=== PATIENT | male | born 1985 | race Caucasian/White ===

== ENCOUNTER 2017-06-03 19:16 | Emergency (ER) | payer MEDICAID ==
--- NOTE | 2017-06-03 19:36 | EDM.PDOC ---
ED HPI GENERAL MEDICAL PROBLEM - General Chief Complaint: Upper Extremity Injury/Pain Stated Complaint: LEFT WRIST PAIN/BUMP Time Seen by Provider: 06/03/17 19:25 Source of Information: Reports: Patient. Denies: Old Records (No [facility] records available) History Limitations: Reports: No Limitations - History of Present Illness INITIAL COMMENTS - FREE TEXT/NARRATIVE: The patient drove himself to the emergency room via private automobile for evaluation of persistent 6/10 sharp left wrist pain with some swelling with patient falling in his home on his extended wrist about 2 weeks ago. He has been able to perform his normal work duties. About one week ago the patient noted a lump on the flexor surface of his wrist and did try to drain this on his own one day thereafter. No history of paresthesias, neurological deficits, head injury, neck/back pain, or other complaints or injuries. He has not injured this wrist in the past. The patient is right-handed. The patient denies any chest pain/pressure, heart flutter, dizziness, orthostasis, orthopnea, diaphoresis, paresthesias, recent decreased exercise tolerance, or any other anginal-type symptoms. No recent history of abdominal pain, heartburn, nausea, diarrhea, melena, gross hematochezia, or any food intolerance, including fatty foods, etc.. The patient also denies any recent fever, cough, wheezing, dyspnea , etc.. His left wrist pain does radiate into his forearm when lifting objects. Onset: Unknown/Unsure Onset Date: 05/21/17 Duration: Constant, Getting Worse Location: Reports: Upper Extremity, Left, Radiates to (As above). Denies: Head , Face, Neck, Chest, Abdomen, Back, Upper Extremity, Right Quality: Reports: Sharp Severity: Moderate Improves with: Reports: Rest Worsens with: Reports: Movement Context: Reports: Trauma (As above) Treatments CASE MANAGEMENT RN: Reports: NSAIDS (400 mg at noon today) Left Wrist Pain Score (Numeric/FACES): 6 - Related Data Allergies Allergy/AdvReac Type Severity Reaction Status Date / Time acetaminophen [From Vicodin] Allergy Hives Verified 06/03/17 19:19 epinephrine Allergy Tachycardia Verified 06/03/17 19:19 hydrocodone [From Vicodin] Allergy Hives Verified 06/03/17 19:19 Penicillins Allergy Cannot Verified 06/03/17 19:19 Remember Home Meds: Home Meds diphenhydrAMINE HCl [Benadryl] 50 mg PO ASDIRECTED PRN 06/03/17 [History] Past Medical History HEENT History: Reports: Allergic Rhinitis, Impaired Vision, Other (See Below). Denies: Hard of Hearing, Retinal Detachment Other HEENT History: Patient wears glasses Cardiovascular History: Reports: None, Other (See Below). Denies: Afib, Aneurysm, Arrhythmia, Blood Clots/VTE/DVT, CAD, Heart Murmur, High Cholesterol, Hypertension, Syncope Other Cardiovascular History: He does not know his cholesterol status Respiratory History: Denies: Asthma, COPD, Intubation, Previous, PE, Pneumothorax Gastrointestinal History: Reports: Colon Polyp, Gastritis, GERD, PUD, Other ( See Below). Denies: Celiac Disease, Cholelithiasis, Chronic Constipation, Chronic Diarrhea, Fecal Incontinence, GI Bleed, Hepatitis, Inflammatory Bowel Disease, Irritable Bowel Syndrome, Jaundice, Pancreatitis Other Gastrointestinal History: Gastric ulcer from age 14. Excision of multiple colonic polyps of unknown type at age 23 Genitourinary History: Reports: None. Denies: Acute Renal Failure, Chronic Renal Insuffiency, Renal Calculus, STD, Urinary Incontinence, UTI, Recurrent Musculoskeletal History: Reports: None. Denies: Amputation, Arthritis, Back Pain, Chronic, Fracture, Gout, Neck Pain, Chronic, RA, SLE Neurological History: Reports: None. Denies: Cerebral Aneurysms, Concussion, CVA, Headaches, Chronic, Head Trauma, Migraines, MS, Parkinson's, Seizure, TIA Psychiatric History: Reports: ADD, ADHD. Denies: Abuse, Victim of, Addiction, Anxiety, Depression, Psych Hospitalization(s), PTSD, Suicide Attempt, Suicidal Ideation Endocrine/Metabolic History: Reports: Obesity/BMI 30+. Denies: Diabetes, Type I , Diabetes, Type II, Diabetes Mellitus, Type 3c, Hypothyroidism, IDDM Hematologic History: Reports: None. Denies: Anemia, Blood Transfusion(s), Iron Deficiency Immunologic History: Reports: None. Denies: AIDS, HIV, SLE Oncologic (Cancer) History: Reports: None. Denies: Basal Cell Carcinoma, Hodgkin's Lymphoma, Leukemia, Lymphoma, Malignant Melanoma, Non-Hodgkin's Lymphoma Dermatologic History: Reports: None. Denies: Eczema, Psoriasis - Infectious Disease History Infectious Disease History: Reports: None. Denies: C-Difficile, Chicken Pox, Measles, Meningitis, Mononucleosis, MRSA, Mumps, Rheumatic Fever, Rubella, Scarlet Fever, VRE - Past Surgical History Head Surgeries/Procedures: Reports: None HEENT Surgical History: Reports: Adenoidectomy, Tonsillectomy, Other (See Below) . Denies: Eye Surgery, Laser Surgery, LASIK, Myringotomy w Tube(s), Naso-Sinus Surgery, Oral Surgery Other HEENT Surgeries/Procedures: Tonsillectomy and adenoidectomy at age 4 Cardiovascular Surgical History: Reports: None. Denies: Varicose Respiratory Surgical History: Reports: None. Denies: Thoracentesis GI Surgical History: Reports: Colonoscopy, Hernia, Inguinal, Polypectomy, Other (See Below). Denies: Appendectomy, Cholecystectomy, EGD, Hernia, Abdominal, Hernia Repair/Other Other GI Surgeries/Procedures: Left inguinal hernia repair 2 at age 23. Colonoscopy at age 23 with excision of multiple polyps at that time as above. Male Surgical History: Reports: Circumcision, Other (See Below). Denies: Vasectomy Other Male Surgeries/Procedures: Circumcision as an Endocrine Surgical History: Reports: None. Denies: Thyroid Biopsy Neurological Surgical History: Reports: None. Denies: C-Spine, Discectomy, Intracranial, Laminectomy, Lumbar Spine, Sacral Spine, Spinal Fusion, Vertebroplasty Musculoskeletal Surgical History: Denies: Arthroscopic Procedure, Carpal Tunnel , Ganglion Cyst, Joint Replacement, ORIF, Shoulder Surgery Oncologic Surgical History: Reports: None Dermatological Surgical History: Reports: None Social & Family History - Tobacco Use Smoking Status *Q: Never Smoker Tobacco Use Within Last Twelve Months: No Used Tobacco, but Quit: No Smoking Cessation Information Provided To Patient: No Second Hand Smoke Exposure: No Second Hand Smoke Education Provided: No - Caffeine Use Caffeine Use: Reports: Soda (24 sodas per day), Tea (1 glass 2 times per month) . 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 ED EXAM, GENERAL - Physical Exam Exam: See Below Exam Limited By: No Limitations General Appearance: Alert, WD/WN, No Apparent Distress Head: Atraumatic, Normocephalic Neck: Normal Inspection, Supple, Non-Tender, Full Range of Motion. No: Lymphadenopathy (L), Lymphadenopathy (R), Thyromegaly Respiratory/Chest: No Respiratory Distress, Lungs Clear, Normal Breath Sounds, No Accessory Muscle Use, Chest Non-Tender. No: Pleural Rub, Retractions Cardiovascular: Normal Peripheral Pulses, Regular Rate, Rhythm, No Edema, No Gallop, No JVD, No Murmur, No Rub. No: Gallop/S3, Gallop/S4, Friction Rub Peripheral Pulses: 2+: Radial (L), Radial (R) GI/Abdominal: Normal Bowel Sounds, Soft, Non-Tender, No Organomegaly, No Distention, No Abnormal Bruit, No Mass, Other (Obese). No: Guarding (Male) Exam: Deferred Rectal (Males) Exam: Deferred Back Exam: Normal Inspection, Full Range of Motion. No: CVA Tenderness (L), CVA Tenderness (R), Muscle Spasm Extremities: Normal Range of Motion, No Pedal Edema, Normal Capillary Refill, Arm Pain (Mild Palpation pain over the 11.5 cm ganglion over the flexor distal left radial surface with no local signs of infection and multiple scratches on his forearms bilaterally. Left wrist shows excellent range of motion with no crepitation, deformity, or snuffbox tenderness). No: Lynn's Sign Neurological: Alert, Oriented, CN II-XII Intact, Normal Cognition, Normal Gait, Normal Reflexes, No Motor/Sensory Deficits Psychiatric: Normal Affect, Normal Mood Skin Exam: Warm, Dry, Normal Color, No Rash, Wound/Incision (Scratches as above) . No: Diaphoretic, Erythema, Increased Warmth, Lymphangitis Lymphatic: No Adenopathy Course - Vital Signs Last Recorded V/S: Last Vital Signs Temp 37.1 C 06/03/17 19:27 Pulse 68 06/03/17 19:27 Resp 18 06/03/17 19:27 BP 146/86 H 06/03/17 19:27 Pulse Ox 96 06/03/17 19:27 - Orders/Labs/Meds Orders: Active Orders 24 hr Category Date Time Status Wrist Comp Min 3V Lt [CR] Stat Exams 06/03/17 19:36 Taken Durable Medical Equipment for Discharge [DME for Oth 06/03/17 20:01 Ordered Discharge] [COMM] Routine Obtain Past Medical Record [OM.PC] Routine Oth 06/03/17 19:36 Active Labs: None Meds: None - Radiology Interpretation Free Text/Narrative:: X-rays of the left wrist, complete, shows no evidence of fracture, dislocation, etc. Mild osteoarthritic changes noted. Mild metallic foreign body in the soft tissue of the distal aspect of the first metacarpal Departure - Departure Time of Disposition: 20:25 Disposition: Home, Self-Care 01 Condition: Good Clinical Impression: Left wrist pain, Ganglion cyst, Obesity (BMI 30.0-34.9), Peptic reflux disease Colonic polyp Qualifiers: Colon polyp type: unspecified Colon location: unspecified part of colon Qualified Code(s): K63.5 - Polyp of colon Allergic rhinitis Qualifiers: Allergic rhinitis trigger: unspecified Allergic rhinitis seasonality: unspecified seasonality Qualified Code(s): J30.9 - Allergic rhinitis, unspecified - Discharge Information Instructions: Ganglion Cyst Referrals: PCP,None [Primary Care Provider] - Forms: ED Department Discharge Additional Instructions: 1. Follow up with your regular provider in 10-14 days as needed, if symptoms persist. 2. Wear cock up wrist splint at all times with activity as directed for at least 2 weeks then as needed thereafter 3. Update regular routine healthcare KADEN with recommended preoperative history and physical for colonoscopy KADEN secondary to your previous history of colonic polyps 4. Activity as directed/tolerated 5. Consider ganglion cyst excision depending on your clinical course 6. Tylenol 650 mg by mouth every 4 hours and/or OTC ibuprofen 2-3 tabs by mouth every 6 hours with food as directed./needed. 7. BenGay or equivalent, heating pad, and/or ice packs as directed. 8. Update your immunizations KADEN including DTaP, etc. with yearly influenza boosters recommended - Problem List & Annotations (1) Allergic rhinitis SNOMED Code(s): 93309764 Code(s): J30.9 - ALLERGIC RHINITIS, UNSPECIFIED Status: Chronic Priority : Medium Annotation/Comment:: Stable by patient history Qualifiers: Allergic rhinitis trigger: unspecified Allergic rhinitis seasonality: unspecified seasonality Qualified Code(s): J30.9 - Allergic rhinitis, unspecified (2) Ganglion cyst SNOMED Code(s): 883672877, 933946498 Code(s): M67.40 - GANGLION, UNSPECIFIED SITE Status: Acute Priority: High Onset Date: ~05/21/17 Annotation/Comment:: Small ganglion cyst only somewhat symptomatic as above. Various therapeutic options were discussed. Patient will consider possible surgery in the future and discuss this further with his new primary care provider. (3) Colonic polyp SNOMED Code(s): 16181290 Code(s): K63.5 - POLYP OF COLON Status: Chronic Priority: Medium Annotation/Comment:: History of multiple colonic polyps in the past as above. Patient counseled extensively concerning the importance of repeat colonoscopy KADEN. Update of his routine health care at that time, including recommended lipid panel, etc. Qualifiers: Colon polyp type: unspecified Colon location: unspecified part of colon Qualified Code(s): K63.5 - Polyp of colon (4) Left wrist pain SNOMED Code(s): 70868063 Code(s): M25.532 - PAIN IN LEFT WRIST Status: Acute Priority: High Onset Date: ~05/21/17 Annotation/Comment:: Probable mild left wrist sprain. Various therapeutic options were discussed. Patient is agreement with initiation of cock up wrist therapy. He is able to perform his normal work duties with no work excuse required. Cock up wrist splint applied by the nurse. Symptomatic treatment as per discharge instructions. (5) Obesity (BMI 30.0-34.9) SNOMED Code(s): 297445349 Code(s): E66.9 - OBESITY, UNSPECIFIED Status: Chronic Priority: Medium Annotation/Comment:: Weight loss in moderation advisable. Lipid panel advisable as above. (6) Peptic reflux disease SNOMED Code(s): 640063768 Code(s): K21.9 - GASTRO-ESOPHAGEAL REFLUX DISEASE WITHOUT ESOPHAGITIS Status: Chronic Priority: Medium Annotation/Comment:: Stable by patient history with no current medical therapy required. - Problem List Review Problem List Initiated/Reviewed/Updated: Yes - My Orders Last 24 Hours: My Active Orders 06/03/17 19:36 Wrist Comp Min 3V Lt [CR] Stat Obtain Past Medical Record [OM.PC] Routine 06/03/17 20:01 Durable Medical Equipment for Discharge [DME for Discharge] [COMM] Routine - Assessment/Plan Last 24 Hours: My Active Orders 06/03/17 19:36 Wrist Comp Min 3V Lt [CR] Stat Obtain Past Medical Record [OM.PC] Routine 06/03/17 20:01 Durable Medical Equipment for Discharge [DME for Discharge] [COMM] Routine Assessment:: As above Plan: As above. Extensive precautions were given to the patient, who is in agreement with the treatment plan. See Patient Instructions for further treatment and plan.
== END 2017-06-03 20:25 | disposition home or self-care (01) ==
LOC: LL.ED 19:16
DX: M67.432 Ganglion, left wrist (principal); S50.812A Abrasion of left forearm, initial encounter; S50.811A Abrasion of right forearm, initial encounter; K63.5 Polyp of colon; K21.9 Gastro-esophageal reflux disease without esophagitis; J30.9 Allergic rhinitis, unspecified; E66.9 Obesity, unspecified; Z68.34 Body mass index [BMI] 34.0-34.9, adult; Z88.6 Allergy status to analgesic agent; Z88.5 Allergy status to narcotic agent; Z88.0 Allergy status to penicillin; W19.XXXA Unspecified fall, initial encounter; Y92.009 Unspecified place in unspecified non-institutional (private) residence as the place of occurrence of the external cause
CPT/HCPCS: 73110-LT; 99283

== ENCOUNTER 2017-09-01 21:57 | Emergency (ER) | payer MEDICAID ==
[2017-09-01 22:46] LABS: CHLORIDE,CL 101 mmol/L (98-107); SODIUM,NA 139 mmol/L (136-145)
--- NOTE | 2017-09-01 23:21 | EDM.PDOC ---
ED HPI GENERAL MEDICAL PROBLEM - General Chief Complaint: Neuro Symptoms/Deficits Stated Complaint: Right sided weakness, tingling since 4pm today Time Seen by Provider: 09/01/17 22:21 Source of Information: Reports: Patient, Other ([place]) History Limitations: Reports: No Limitations - History of Present Illness INITIAL COMMENTS - FREE TEXT/NARRATIVE: Patient presents to ER complaining of right sided weakness/tingling that started around 4 to 4:30 this afternoon. Initially started to feel unwell around noon. At that time he felt chilled and sleepy. Wrapped self in blanket and tried to sleep. Also took 3 Tylenol because of developing headache. He later noted the right sided discomfort, and took another 3 Tylenol. Fibethanie wanted him to come in tonight due to family history of stroke and aneurysms. Father reportedly had first stroke in his 30s. Uncle, great uncle, and grandfather had aneurysms. - Related Data Allergies Allergy/AdvReac Type Severity Reaction Status Date / Time acetaminophen [From Vicodin] Allergy Hives Verified 09/01/17 22:03 epinephrine Allergy Tachycardia Verified 09/01/17 22:03 hydrocodone [From Vicodin] Allergy Hives Verified 09/01/17 22:03 Penicillins Allergy Cannot Verified 09/01/17 22:03 Remember Home Meds: Home Meds Acetaminophen [Tylenol] 1,950 mg PO Q4HR 09/01/17 [History] Past Medical History HEENT History: Reports: Allergic Rhinitis, Impaired Vision, Other (See Below) Other HEENT History: Patient wears glasses Cardiovascular History: Reports: None, Other (See Below) Other Cardiovascular History: He does not know his cholesterol status Gastrointestinal History: Reports: Colon Polyp, Gastritis, GERD, PUD, Other ( See Below) Other Gastrointestinal History: Gastric ulcer from age 14. Excision of multiple colonic polyps of unknown type at age 23 Genitourinary History: Reports: None Musculoskeletal History: Reports: None Neurological History: Reports: None Psychiatric History: Reports: ADD, ADHD Endocrine/Metabolic History: Reports: Obesity/BMI 30+ Hematologic History: Reports: None Immunologic History: Reports: None Oncologic (Cancer) History: Reports: None Dermatologic History: Reports: None - Infectious Disease History Infectious Disease History: Reports: None - Past Surgical History Head Surgeries/Procedures: Reports: None HEENT Surgical History: Reports: Adenoidectomy, Tonsillectomy, Other (See Below) Other HEENT Surgeries/Procedures: Tonsillectomy and adenoidectomy at age 4 Cardiovascular Surgical History: Reports: None Respiratory Surgical History: Reports: None GI Surgical History: Reports: Colonoscopy, Hernia, Inguinal, Polypectomy, Other (See Below) Other GI Surgeries/Procedures: Left inguinal hernia repair 2 at age 23. Colonoscopy at age 23 with excision of multiple polyps at that time as above. Male Surgical History: Reports: Circumcision, Other (See Below) Other Male Surgeries/Procedures: Circumcision as an Endocrine Surgical History: Reports: None Neurological Surgical History: Reports: None Oncologic Surgical History: Reports: None Dermatological Surgical History: Reports: None Social & Family History - Family History Neurological: Reports: Cerebral Aneurysms, CVA - Caffeine Use Caffeine Use: Reports: Soda, Tea - Living Situation & Occupation Living situation: Reports: Single (4 children from previous significant other relationship), with Significant Other (With 3 children from this relationship) Occupation: Employed ([employer]) ED ROS GENERAL - Review of Systems Review Of Systems: See Below Constitutional: Reports: Chills, Malaise, Fatigue, Decreased Appetite, Other ( felt "hot" at times). Denies: Fever, Weakness, Night Sweats, Diaphoresis HEENT: Reports: No Symptoms Respiratory: Reports: No Symptoms Cardiovascular: Reports: No Symptoms GI/Abdominal: Reports: Abdominal Pain (mild abdominal discomfort/general), Decreased Appetite. Denies: Black Stool, Bloody Stool, Constipation, Diarrhea, Hematemesis, Hematochezia, Nausea, Vomiting : Reports: No Symptoms Musculoskeletal: Reports: No Symptoms Skin: Reports: No Symptoms Neurological: Reports: Other (right arm/leg tingling, feels weak) Psychiatric: Reports: No Symptoms Hematologic/Lymphatic: Reports: No Symptoms Immunologic: Reports: No Symptoms ED EXAM, NEURO - Physical Exam Exam: See Below Exam Limited By: No Limitations General Appearance: Alert, WD/WN, No Apparent Distress Eye Exam: Bilateral Eye: EOMI, PERRL Ears: Normal External Exam, Normal Canal, Hearing Grossly Normal, Normal TMs Nose: Normal Inspection Throat/Mouth: Normal Inspection, Normal Lips, Normal Voice, No Airway Compromise Head Exam: Atraumatic, Normocephalic Neck: Normal Inspection, Supple, Non-Tender, Full Range of Motion Respiratory/Chest: No Respiratory Distress, Lungs Clear, Normal Breath Sounds, No Accessory Muscle Use, Chest Non-Tender Cardiovascular: Normal Peripheral Pulses, Regular Rate, Rhythm, No Edema, No Murmur GI/Abdominal: Normal Bowel Sounds, Soft, No Distention, Tender (mild diffuse discomfort with palpation). No: Guarding, Rigid, Rebound (Male) Exam: Deferred Rectal (Males) Exam: Deferred Neurological: Alert, Normal Mood/Affect, Normal Dorsiflexion, CN II-XII Intact, Normal Plantar Flexion, Normal Reflexes, Oriented x 3, Other (strength appears equal/bilateral however mild drift noted right arm and leg) DTR: 2+: Bicep (R), Bicep (L), Patella (R), Patella (L) Back Exam: Normal Inspection Extremities: Normal Range of Motion, Non-Tender, No Pedal Edema, Normal Capillary Refill Psychiatric: Normal Affect, Normal Mood Skin Exam: Warm, Dry, Intact, Normal Color EKG INTERPRETATION EKG Date: 09/01/17 Time: 22:09 Rhythm: NSR Rate (Beats/Min): 94 [place]: Normal P-Wave: Present QRS: Normal ST-T: Normal QT: Normal Comparison: NA - No Prior EKG Course - Orders/Labs/Meds Orders: Active Orders 24 hr Category Date Time Status Chest 1V Frontal [CR] Routine Exams 09/01/17 10:15 Taken Head wo Cont [CT] Routine Exams 09/01/17 22:10 Taken PROLACTIN [REF] Stat Lab 09/01/17 22:10 Received UA W/MICROSCOPIC [URIN] Stat Lab 09/01/17 22:41 Ordered Labs: Laboratory Tests 09/01/17 09/01/17 09/01/17 Range/Units 22:10 22:10 22:10 WBC 26.8 H (4.0-10.2) K/uL RBC 5.06 (4.33-5.41) M/uL Hgb 14.8 (13.1-16.8) g/dL Hct 44.9 (39.0-49.0) % MCV 88.7 (84.0-98.0) fL MCH 29.2 (28.2-33.3) pg MCHC 33.0 (31.7-36.0) g/dL RDW 13.7 (11.2-14.1) % Plt Count 366 H (150-350) K/uL Neut % (Auto) Pyridine Recovery Operator Lymph % (Auto) Pyridine Recovery Operator [place] % (Auto) Pyridine Recovery Operator Eos % (Auto) Pyridine Recovery Operator Baso % (Auto) Pyridine Recovery Operator Neut # (Auto) Pyridine Recovery Operator Lymph # (Auto) Pyridine Recovery Operator [place] # (Auto) Pyridine Recovery Operator Eos # (Auto) Pyridine Recovery Operator Baso # (Auto) Pyridine Recovery Operator Add Manual Diff Yes Neutrophils % (Manual) 79 Band Neutrophils % 16 Lymphocytes % (Manual) 1 Monocytes % (Manual) 4 Absolute Neutrophils 25.4600 Lymphocytes # (Manual) 0.2680 Monocytes # (Manual) 1.0720 PT 10.9 (9.8-11.7) SEC INR 1.0 APTT 25.4 (22.1-29.8) SEC D-Dimer, Quantitative < 100 (0-400) ng/mL Sodium (136-145) mmol/L Potassium (3.5-5.1) mmol/L Chloride (98-107) mmol/L Carbon Dioxide (21.0-32.0) mmol/L BUN (7-18) mg/dL Creatinine (0.51-1.17) mg/dL Est Cr Clr Drug Dosing Estimated GFR (MDRD) mL/min Glucose (74-106) mg/dL Calcium (8.5-10.1) mg/dL Magnesium (1.8-2.4) mg/dL Total Bilirubin (0.2-1.0) mg/dL AST (15-37) U/L ALT (12-78) U/L Alkaline Phosphatase (46-116) IU/L Creatine Kinase (26-308) U/L Creatine Kinase Index (0.0-2.5) % CK-MB (CK-2) (0.00-3.60) ng/mL Troponin I (0.000-0.056) ng/mL NT-Pro-B Natriuret Pep (0-125) pg/mL Total Protein (6.4-8.2) g/dL Albumin (3.4-5.0) g/dL Specimen Type Urine Color (YELLOW) Urine Appearance (CLEAR) Urine pH (5.0-9.0) Ur Specific [place] (1.005-1.030) Urine Protein (NEGATIVE) mg/dL Urine Glucose (UA) (NEGATIVE) mg/dL Urine Ketones (NEGATIVE) mg/dL Urine Occult Blood (NEGATIVE) Urine Nitrite (NEGATIVE) Urine Bilirubin (NEGATIVE) Urine Urobilinogen (0.2-1.0) E.U./dL Ur Leukocyte Esterase (NEGATIVE) Urine RBC /HPF Urine WBC /HPF Ur Epithelial Cells /LPF Urine Bacteria (NONE TO FEW) /HPF Urine Mucus (NEGATIVE) /LPF 09/01/17 09/01/17 Range/Units 22:10 22:41 WBC (4.0-10.2) K/uL RBC (4.33-5.41) M/uL Hgb (13.1-16.8) g/dL Hct (39.0-49.0) % MCV (84.0-98.0) fL MCH (28.2-33.3) pg MCHC (31.7-36.0) g/dL RDW (11.2-14.1) % Plt Count (150-350) K/uL Neut % (Auto) Lymph % (Auto) [place] % (Auto) Eos % (Auto) Baso % (Auto) Neut # (Auto) Lymph # (Auto) [place] # (Auto) Eos # (Auto) Baso # (Auto) Add Manual Diff Neutrophils % (Manual) Band Neutrophils % Lymphocytes % (Manual) Monocytes % (Manual) Absolute Neutrophils Lymphocytes # (Manual) Monocytes # (Manual) PT (9.8-11.7) SEC INR APTT (22.1-29.8) SEC D-Dimer, Quantitative (0-400) ng/mL Sodium 139 (136-145) mmol/L Potassium 4.0 (3.5-5.1) mmol/L Chloride 101 (98-107) mmol/L Carbon Dioxide 25.5 (21.0-32.0) mmol/L BUN 10 (7-18) mg/dL Creatinine 0.98 (0.51-1.17) mg/dL Est Cr Clr Drug Dosing TNP Estimated GFR (MDRD) > 60 mL/min Glucose 128 H (74-106) mg/dL Calcium 9.1 (8.5-10.1) mg/dL Magnesium 2.0 (1.8-2.4) mg/dL Total Bilirubin 1.2 H (0.2-1.0) mg/dL AST 21 (15-37) U/L ALT 42 (12-78) U/L Alkaline Phosphatase 104 (46-116) IU/L Creatine Kinase 197 (26-308) U/L Creatine Kinase Index 0.5 (0.0-2.5) % CK-MB (CK-2) 1.00 (0.00-3.60) ng/mL Troponin I 0.000 (0.000-0.056) ng/mL NT-Pro-B Natriuret Pep 27 (0-125) pg/mL Total Protein 7.8 (6.4-8.2) g/dL Albumin 4.1 (3.4-5.0) g/dL Specimen Type [place]rin[place]ad Urine Color Bindu H (YELLOW) Urine Appearance Clear (CLEAR) Urine pH 7.0 (5.0-9.0) Ur Specific [place] 1.020 (1.005-1.030) Urine Protein Negative (NEGATIVE) mg/dL Urine Glucose (UA) Negative (NEGATIVE) mg/dL Urine Ketones Negative (NEGATIVE) mg/dL Urine Occult Blood Negative (NEGATIVE) Urine Nitrite Negative (NEGATIVE) Urine Bilirubin Negative (NEGATIVE) Urine Urobilinogen >=8.0 H (0.2-1.0) E.U./dL Ur Leukocyte Esterase Negative (NEGATIVE) Urine RBC 0-5 /HPF Urine WBC 0-5 /HPF Ur Epithelial Cells Occasional /LPF Urine Bacteria Few (NONE TO FEW) /HPF Urine Mucus Few H (NEGATIVE) /LPF Meds: Medications Discontinued Medications Generic Name Dose Route Start Last Admin Trade Name Freq PRN Reason Stop Dose Admin Ketorolac Tromethamine 30 mg 09/01/17 23:22 Toradol IVPUSH 09/01/17 23:23 ONETIME ONE - Radiology Interpretation Free Text/Narrative:: Chest xray did not show obvious acute changes/infiltrates/pneumothorax CT Results Date: 09/01/17 CT Results Time: 22:30 (unremarkable for acute changes) - Re-Assessments/Exams Free Text/Narrative Re-Assessment/Exam: 09/01/17 23:41 Workup [place] [address]. Elevated bili levels in Chem and UA. Chest xray/CT unremarkable. Stroke scale 2, based on mild drift of right arm/leg. Call placed to [facility]. Discussed patient with from Neuro. He felt that this did not appear consistent with acute stroke and felt patient should be evaluated through the ER. Discussed patient with from [facility] ER. Patient may benefit from MRI. May also be candidate for spinal tap to look for infectious changes given his pattern of symptoms. [facility] will perform tick/[place] testing based on our conversation. Patient stable. Refuses EMS transfer. Will be transfered by lacie directly from our ER to [facility] ER by private vehicle for further evaluation. Departure - Departure Time of Disposition: 23:46 Disposition: DC/Tfer to Acute Hospital 02 Condition: Fair Clinical Impression: Numbness on right side, Right-sided muscle weakness Elevated white blood cell count, unspecified Qualifiers: Leukocytosis type: unspecified Qualified Code(s): D72.829 - Elevated white blood cell count, unspecified - Discharge Information *PRESCRIPTION DRUG MONITORING PROGRAM REVIEWED*: Not Applicable *COPY OF PRESCRIPTION DRUG MONITORING REPORT IN PATIENT ESTEBAN: Not Applicable Referrals: Kaylen Hagen MD [Primary Care Provider] - Forms: ED Department Discharge Additional Instructions: Drive directly to [facility] and present to the ER. They will continue the workup and are waiting for your arrival. - My Orders Last 24 Hours: My Active Orders 09/01/17 10:15 Chest 1V Frontal [CR] Routine 09/01/17 22:10 Head wo Cont [CT] Routine PROLACTIN [REF] Stat 09/01/17 22:41 UA W/MICROSCOPIC [URIN] Stat - Assessment/Plan Last 24 Hours: My Active Orders 09/01/17 10:15 Chest 1V Frontal [CR] Routine 09/01/17 22:10 Head wo Cont [CT] Routine PROLACTIN [REF] Stat 09/01/17 22:41 UA W/MICROSCOPIC [URIN] Stat
[2017-09-01] MEDS ORDERED: Ketorolac 30 MG/ML SDV IVPUSH ONE (23:22)
== END 2017-09-01 23:50 ==
LOC: LL.ED 21:57
DX: R20.0 Anesthesia of skin (principal); D72.829 Elevated white blood cell count, unspecified; R53.1 Weakness; Z88.0 Allergy status to penicillin; Z88.8 Allergy status to other drugs, medicaments and biological substances; Z88.5 Allergy status to narcotic agent
CPT/HCPCS: 70450; 71045; 80053; 81001; 82550; 82553; 83735; 83880; 84146; 84484; 85025; 85379; 85610; 85730; 93005; 96374; 99291; J1885; 36415

== ENCOUNTER 2024-02-12 16:34 | Emergency (ER) | payer OTHER ==
[2024-02-12] MEDS: oxyCODONE 5 MG Tab PO ONE (17:54)
[2024-02-12] MEDS: Take Home: oxyCODONE HCl 5 MG Tab, 5 Tab Pack PO ONE (18:33)
== END 2024-02-12 18:40 | disposition home or self-care (01) ==
LOC: LL.ED 16:34
DX: S62.625A Displaced fracture of middle phalanx of left ring finger, initial encounter for closed fracture (principal); S62.637A Displaced fracture of distal phalanx of left little finger, initial encounter for closed fracture; E66.9 Obesity, unspecified; Z88.0 Allergy status to penicillin; Z88.8 Allergy status to other drugs, medicaments and biological substances; Z68.38 Body mass index [BMI] 38.0-38.9, adult; Z79.899 Other long term (current) drug therapy; X50.1XXA Overexertion from prolonged static or awkward postures, initial encounter; Y99.0 Civilian activity done for income or pay; Y92.89 Other specified places as the place of occurrence of the external cause
CPT/HCPCS: 36415; 73130-LT; 80307; 99283; 99284; A9270-GY

== ENCOUNTER 2024-11-25 08:41 | Day surgery (SDC) | payer OTHER ==
[~2024-11-25 08:41] MED LIST: Midazolam 1 MG/ML 2 ML SDV ONE; Propofol 200 MG/20 ML SDV ONE; Sodium Chloride 0.9% 10 ML Syringe FLUSH PRN
[2024-11-25] MEDS: Lactated Ringers 1,000 ML IV SCH (09:32)
== END 2024-11-25 11:15 | disposition home or self-care (01) ==
LOC: LL.SDS 08:41
PROVIDERS: ATTEND Surgery
DX: D12.0 Benign neoplasm of cecum (principal); D50.9 Iron deficiency anemia, unspecified; I10 Essential (primary) hypertension; E78.2 Mixed hyperlipidemia; E66.9 Obesity, unspecified; Z68.39 Body mass index [BMI] 39.0-39.9, adult; Z88.0 Allergy status to penicillin; Z88.5 Allergy status to narcotic agent; Z88.8 Allergy status to other drugs, medicaments and biological substances; Z79.899 Other long term (current) drug therapy; Z86.0100 Personal history of colon polyps, unspecified
CPT/HCPCS: 00811; J2250; J2704; J7120